=== PATIENT | male | born 1955 | race Caucasian/White ===

== ENCOUNTER 2018-10-04 14:51 | Emergency (ER) | payer SELFPAY ==
[~2018-10-04] VITALS: Ht 170.2 cm; Wt 89.0 kg
[~2018-10-04 14:51] MED LIST: NO HOME MEDS
[2018-10-05] MEDS ORDERED: AMLODIPINE 5MG TABLET PO ONE (00:15)
[2018-10-05] MEDS ORDERED: ACETAMINOPHEN 325MG TABLET PO ONE (00:15)
[2018-10-05] MEDS ORDERED: SODIUM CHLORIDE 0.9% 1,000 ML IV ONE (00:15)
[2018-10-05 00:28] LABS: CHLORIDE 102 mEq/L (98-107)
[2018-10-05 00:46] LABS: HEMATOCRIT. 41.4 % (42.0-52.0); HEMOGLOBIN. 14.6 g/dL (14.0-18.0); MEAN CORPUSCULAR VOLUME 92.4 fL (80.0-94.0); RED BLOOD CELL COUNT 4.48 mill/uL (4.7-6.1)
[2018-10-05 00:47] LABS: BASOPHILS % 1.2 % (0.0-2.0); EOSINOPHILS % 1.1 % (0.0-5.0); LYMPHOCYTES % 27.4 % (20.0-50.0); MEAN CORPUSCULAR HEMOGLOBIN 32.5 pg (28.0-32.0); MEAN PLATELET VOLUME 9.4 fl (7.4-10.4); MONOCYTES % 8.7 % (2.0-8.0); NEUTROPHILS % 61.6 % (40.0-76.0); PLATELET 224 x1000/uL (130-400); RED CELL DISTRIBUTION WIDTH 13.3 % (11.6-14.6)
[2018-10-05 02:08] VITALS: BP 159/95
== END 2018-10-05 02:09 | disposition home or self-care (01) ==
LOC: ER 14:51
DX: I10 Essential (primary) hypertension (principal); E11.65 Type 2 diabetes mellitus with hyperglycemia; R51 Headache
CPT/HCPCS: 36415; 71045; 80053; 82962; 84484; 85025; 93005; 96360; 99284; J7030

== ENCOUNTER 2019-05-23 13:17 | Emergency (ER) | payer SELFPAY ==
[~2019-05-23] VITALS: Ht 165.1 cm; Wt 87.0 kg
[2019-05-23 13:26] VITALS: BP 190/106
[2019-05-23] MEDS ORDERED: BACITRACIN ZINC OINT UDPKT TOP ONE ×2 (16:15→16:45)
[2019-05-23] MEDS ORDERED: TETANUS, DIPHTHERIA, PERTUSSIS VAC/PF 0.5ML (>7YR OLD) IM ONE (16:15)
[2019-05-23] MEDS ORDERED: FLUORESCEIN SODIUM 1MG/STRIP RIGHTEYE ONE (16:15)
== END 2019-05-23 17:40 | disposition home or self-care (01) ==
LOC: ER 13:17
DX: S01.111A Laceration without foreign body of right eyelid and periocular area, initial encounter (principal); E11.9 Type 2 diabetes mellitus without complications; I10 Essential (primary) hypertension; W01.0XXA Fall on same level from slipping, tripping and stumbling without subsequent striking against object, initial encounter; Y93.89 Activity, other specified; Y92.018 Other place in single-family (private) house as the place of occurrence of the external cause
CPT/HCPCS: 12011; 90471; 90715; 99283

== ENCOUNTER 2019-05-25 10:28 | Emergency (ER) | payer SELFPAY ==
[~2019-05-25] VITALS: Ht 160 cm; Wt 80.0 kg
[2019-05-25 11:36] VITALS: BP 151/100
== END 2019-05-25 12:05 | disposition home or self-care (01) ==
LOC: ER 10:28
DX: H11.31 Conjunctival hemorrhage, right eye (principal); S01.111A Laceration without foreign body of right eyelid and periocular area, initial encounter; W01.0XXA Fall on same level from slipping, tripping and stumbling without subsequent striking against object, initial encounter; Y93.9 Activity, unspecified; Y92.9 Unspecified place or not applicable; E11.9 Type 2 diabetes mellitus without complications
CPT/HCPCS: 99281